=== PATIENT | female | born 1990 | race Caucasian/White ===

== ENCOUNTER → 2016-06-05 | Outpatient (CLI) | payer OTHER ==
--- NOTE | 2016-06-05 09:29 | US ---
Complete Pelvic Sonography (Transabdominal and Endovaginal) Clinical History: 26-year-old female who had a ParaGard IUD placed in October 2013 and now the strings a ppear longer. Check the positioning of the IUD. The patient's LMP was May 27, 2016, and she is G 0, P0. Technique: Initially, a curvilinear 5 MHz transducer was used to sonographically evaluate the pelvis, using a full urinary bladder as a window. To better assess the uterine architecture and the adnexal structures, endovaginal pelvic sonography was also performed. Color Doppler and spectral Doppler was used. Comparison Study: CT scan of the pelvis, dated November 21, 2011. Findings: Transabdominal Pelvic Sonography: The uterus is normal in size, shape, and position measuring 6.9 x 3 .3 x 3.8 cm. The echogenic intrauterine device is present. The ovaries are seen bilaterally, and cont ain tiny follicles. Intraovarian vascular flow is documented. Endovaginal Pelvic Sonography: The echogenic intrauterine device is appropriately positioned, termina ting at the fundal endometrium where the sidearms are deployed (please reference coronal reconstructe d image 40). The right ovary measures 3.3 x 3.5 x 2.0 cm, and the left ovary measures 3.4 x 1.4 x 3.7 cm. Tiny anechoic follicles are seen. Intraovarian vascular flow is documented with a resistive inde x in the left ovary of 0.51 and in the right ovary of 0.53. There is a small amount of free fluid in the posterior pelvic cul-de-sac. Impression: The intrauterine device is appropriately positioned, terminating at the fundal portion of the endometrium where the sidearms are deployed.
== END ==
LOC: FIMAGING 07:14
PROVIDERS: ATTEND Obstetrics & Gynecology Gynecology
DX: Z30.431 Encounter for routine checking of intrauterine contraceptive device (principal); Z97.5 Presence of (intrauterine) contraceptive device